=== PATIENT | female | born 2000 | race Caucasian/White ===

== ENCOUNTER 2022-09-29 12:21 | Emergency (ER) | payer OTHER ==
[~2022-09-29] VITALS: Ht 160 cm; Wt 145.0 kg
[2022-09-29 13:32] LABS: BASO # 0.1 10^3/uL (0.0-0.2); BASO % 0.3 % (0.0-1.0); EOS # 0.1 10^3/uL (0.0-0.5); EOS % 0.6 % (0.0-3.0); HEMATOCRIT 39.4 % (36.0-47.0); HEMOGLOBIN 12.8 g/dl (12.0-15.5); LYMPH % 12.5 % (24.0-44.0); MEAN CORPUSCULAR HEMOGLOBIN 26.4 pg (27.0-33.0); MEAN CORPUSCULAR HGB CONC 32.5 g/dl (32.0-36.5); MEAN CORPUSCULAR VOLUME 81.2 fl (80.0-96.0); MONO # 1.3 10^3/uL (0.0-0.8); MONO % 8.5 % (2.0-8.0); NEUTROPHILS # 12.3 10^3/uL (1.5-8.5); NEUTROPHILS % 77.8 % (36.0-66.0); PLATELET COUNT, AUTOMATED 310 10^3/uL (150-450); RED BLOOD COUNT 4.85 10^6/uL (4.00-5.40); WHITE BLOOD COUNT 15.8 10^3/uL (4.0-10.0)
[2022-09-29 13:54] LABS: LIPASE 45 U/L (12-53)
[2022-09-29 13:56] LABS: ALBUMIN 3.7 G/DL (3.2-5.2); ALKALINE PHOSPHATASE 82 U/L (46-116); ALT/SGPT 31 U/L (7.0-40); AST/SGOT 20 U/L (<34); BILIRUBIN,DIRECT < 0.1 MG/DL (<0.4); BILIRUBIN,TOTAL 0.2 MG/DL (0.3-1.2)
[2022-09-29] MEDS ORDERED: ISOVUE-370 76% 100ML VIAL As Ordered ONE (13:56)
[2022-09-29] MEDS ORDERED: vitamin D PO (14:47)
[2022-09-29] MEDS ORDERED: LEVO2TA (14:47)
[2022-09-29] MEDS ORDERED: ONDA4TAB6 PO (15:29)
[2022-09-29 15:37] VITALS: BP 122/80
== END 2022-09-29 15:50 | disposition home or self-care (01) ==
LOC: M ED 12:21
DX: I88.0 Nonspecific mesenteric lymphadenitis (principal); I10 Essential (primary) hypertension; K44.9 Diaphragmatic hernia without obstruction or gangrene; F10.10 Alcohol abuse, uncomplicated; Z79.83 Long term (current) use of bisphosphonates; Z79.899 Other long term (current) drug therapy
CPT/HCPCS: 36415; 74177; 80047; 80076; 83690; 84702; 85025; 87507; 87880; 93005; 99284; Q9967

== ENCOUNTER 2023-03-07 13:24 | Day surgery (SDC) | payer OTHER ==
[~2023-03-07] VITALS: Ht 162.6 cm; Wt 153.7 kg
[~2023-03-07 13:24] MED LIST: D-3-50003 PO; LEVO2TA; LIDOCAINE 2% 100MG/5ML SDV (FOR ANES.) As Ordered ONE; NS 1,000 ML IV ONE; ONDA4TAB6 PO; PHEN37.58 PO; SYNT25TA PO; TOPI-254 PO; VITMTA PO; propofoL 200 MG/20 ML VIAL As Ordered ONE; vitamin D PO
[2023-03-07] MEDS ORDERED: fentaNYL 100 MCG/2 ML INJECTION As Ordered ONE (14:46)
[2023-03-07 15:19] VITALS: TEMP 97.2
[2023-03-07 15:45] VITALS: BP 118/80; O2SAT 98
== END 2023-03-07 15:39 | disposition home or self-care (01) ==
LOC: M OPP 13:24
PROVIDERS: ATTEND Internal Medicine Gastroenterology
DX: K29.70 Gastritis, unspecified, without bleeding (principal); K30 Functional dyspepsia; G47.30 Sleep apnea, unspecified; Z79.890 Hormone replacement therapy; Z79.899 Other long term (current) drug therapy; Z88.8 Allergy status to other drugs, medicaments and biological substances
CPT/HCPCS: 43239; 88305; J3010

== ENCOUNTER 2024-02-15 21:33 | Emergency (ER) | payer OTHER ==
[~2024-02-15] VITALS: Ht 162.6 cm; Wt 121.3 kg
[~2024-02-15 21:33] MED LIST changes: -LIDOCAINE 2% 100MG/5ML SDV (FOR ANES.) As Ordered ONE; -NS 1,000 ML IV ONE; +ONDA-282 PO; -ONDA4TAB6 PO; +TOPI-21 PO; -TOPI-254 PO; -propofoL 200 MG/20 ML VIAL As Ordered ONE
[2024-02-15 21:51] VITALS: TEMP 96.5
[2024-02-15 22:48] LABS: BASO % 0.4 % (0.0-1.0); EOS # 0.1 10^3/uL (0.0-0.5); EOS % 0.6 % (0.0-3.0); HEMATOCRIT 35.2 % (36.0-47.0); HEMOGLOBIN 11.2 g/dl (12.0-15.5); MEAN CORPUSCULAR HEMOGLOBIN 26.1 pg (27.0-33.0); MEAN CORPUSCULAR HGB CONC 31.8 g/dl (32.0-36.5); MEAN CORPUSCULAR VOLUME 82.1 fl (80.0-96.0); MONO # 0.6 10^3/uL (0.0-0.8); MONO % 7.4 % (2.0-8.0); NEUTROPHILS # 5.7 10^3/uL (1.5-8.5); NEUTROPHILS % 67.4 % (36.0-66.0); PLATELET COUNT, AUTOMATED 248 10^3/uL (150-450); RED BLOOD COUNT 4.29 10^6/uL (4.00-5.40); WHITE BLOOD COUNT 8.5 10^3/uL (4.0-10.0)
[2024-02-15 23:18] LABS: ETHYL ALCOHOL (ETHANOL) 0.152 % (0.000-0.010)
[2024-02-15 23:20] LABS: BLOOD UREA NITROGEN 14 MG/DL (9-23); CALCIUM LEVEL 8.3 MG/DL (8.5-10.1); CARBON DIOXIDE LEVEL 20 MMOL/L (20-31); CHLORIDE LEVEL 109 MMOL/L (98-107); CREATININE FOR GFR 0.64 MG/DL (0.55-1.30); GLOMERULAR FILTRATION RATE > 60.0 (>60); GLUCOSE, FASTING 100 MG/DL (60-100); MAGNESIUM LEVEL 1.7 MG/DL (1.8-2.4); POTASSIUM SERUM 3.7 MMOL/L (3.5-5.1); SODIUM LEVEL 138 MMOL/L (136-145)
[2024-02-16] MEDS: NS 1,000 ML IV ONE (00:19)
[2024-02-16] MEDS: MAG SULF 1GM/100ML (MAG RUN) 1 GM in IV 1 EA IV ONE (00:57)
[2024-02-16 04:00] VITALS: BP 104/61; O2SAT 100
== END 2024-02-16 05:38 | disposition home or self-care (01) ==
LOC: M ED 21:33 → EDUNIT# 21:33 → EDBD 21:33 → M ED 02-16 05:38
DX: F10.129 Alcohol abuse with intoxication, unspecified (principal); E83.42 Hypomagnesemia; Z91.048 Other nonmedicinal substance allergy status; Z79.899 Other long term (current) drug therapy; Z98.84 Bariatric surgery status
CPT/HCPCS: 71045; 80048; 82077; 83735; 85025; 96365; 99285; J3475

== ENCOUNTER → 2024-05-18 | Outpatient (CLI) | payer OTHER | LOC: M WUC 14:24 | PROVIDERS: ATTEND Nurse Practitioner Family | DX: M54.2 Cervicalgia (principal) ==